=== PATIENT | male | born 1955 | race Caucasian/White ===

== ENCOUNTER → 2018-03-04 | Outpatient (CLI) | payer OTHER, MEDICARE | LOC: M PLARAD 10:23 | DX: M54.5 Low back pain (principal) | CPT/HCPCS: 72148 ==

== ENCOUNTER 2023-03-04 08:34 | Emergency (ER) | payer MEDICARE, OTHER ==
[~2023-03-04] VITALS: Ht 175.3 cm; Wt 103.3 kg
[~2023-03-04 08:34] MED LIST: ASPI325T PO; ASPI81CH PO; DIAZ10TA2 PO; HALO5TAB PO; LISI5TAB PO; METO1TAB87 PO; PRAV1TAB39 PO; ULTR50TA PO; VICO5TAB PO; plavix PO
[2023-03-04 09:18] LABS: BASO % 0.1 % (0.0-1.0); EOS # 0.1 10^3/uL (0.0-0.5); EOS % 0.6 % (0.0-3.0); HEMATOCRIT 45.9 % (42.0-52.0); HEMOGLOBIN 15.7 g/dl (13.5-17.5); LYMPH # 1.5 10^3/uL (1.5-5.0); LYMPH % 9.7 % (24.0-44.0); MEAN CORPUSCULAR HEMOGLOBIN 30.4 pg (27.0-33.0); MEAN CORPUSCULAR HGB CONC 34.2 g/dl (32.0-36.5); MEAN CORPUSCULAR VOLUME 88.8 fl (80.0-96.0); MONO # 1.1 10^3/uL (0.0-0.8); MONO % 6.8 % (2.0-8.0); NEUTROPHILS # 13.1 10^3/uL (1.5-8.5); NEUTROPHILS % 82.3 % (36.0-66.0); PLATELET COUNT, AUTOMATED 234 10^3/uL (150-450); RED BLOOD COUNT 5.17 10^6/uL (4.30-6.10); WHITE BLOOD COUNT 15.9 10^3/uL (4.0-10.0)
[2023-03-04] MEDS ORDERED: CARV6.25 (09:19)
[2023-03-04] MEDS ORDERED: SPIR-10 (09:19)
[2023-03-04] MEDS ORDERED: CHLO125TA (09:19)
[2023-03-04] MEDS: METOPROLOL 5 MG/5 ML VIAL IV SCH ×3 (09:26→09:41)
[2023-03-04 09:33] VITALS: BP 135/84
[2023-03-04 09:46] LABS: CK-MB VALUE MASS < 1.0 NG/ML (<3.6); LIPASE 43 U/L (12-53)
[2023-03-04 09:48] LABS: ALKALINE PHOSPHATASE 61 U/L (46-116); ALT/SGPT 42 U/L (7.0-40); AST/SGOT 20 U/L (<34); BILIRUBIN,DIRECT 0.5 MG/DL (<0.4); BILIRUBIN,TOTAL 1.8 MG/DL (0.3-1.2); BLOOD UREA NITROGEN 23 MG/DL (9-23); CALCIUM LEVEL 9.3 MG/DL (8.3-10.6); CARBON DIOXIDE LEVEL 25 MMOL/L (20-31); CHLORIDE LEVEL 106 MMOL/L (98-107); CPK CREATINE PHOSPHOKINASE 48 U/L (46-171); CREATININE FOR GFR 1.16 MG/DL (0.70-1.30); GLOMERULAR FILTRATION RATE > 60.0 (>49); GLUCOSE, FASTING 144 MG/DL (74-106); MAGNESIUM LEVEL 1.9 MG/DL (1.8-2.4); MB/CK RELATIVE INDEX 2.08 (< OR =4); POTASSIUM SERUM 4.2 MMOL/L (3.5-5.1); SODIUM LEVEL 141 MMOL/L (136-145); TOTAL PROTEIN 7.4 G/DL (5.7-8.2)
[2023-03-04 09:50] LABS: FREE T4 1.17 NG/DL (0.89-1.76); THYROID STIMULATING HORMONE 0.921 uIU/ML (0.55-4.78)
[2023-03-04 10:56] LABS: CK-MB VALUE MASS < 1.0 NG/ML (<3.6)
[2023-03-04 10:58] LABS: CPK CREATINE PHOSPHOKINASE 40 U/L (46-171)
[2023-03-04] MEDS ORDERED: DIGOXIN INJ 0.5 MG/2 ML AMP IV STA (11:01)
[2023-03-04] MEDS ORDERED: AMIODARONE HCL 150 MG in IV 1 EA IV STA ×3 (11:23→14:30)
[2023-03-04 14:02] LABS: CK-MB VALUE MASS < 1.0 NG/ML (<3.6)
[2023-03-04 14:04] LABS: CPK CREATINE PHOSPHOKINASE 48 U/L (46-171); MB/CK RELATIVE INDEX 2.08 (< OR =4)
[2023-03-04] MEDS ORDERED: AMIO200T49 PO ×2 (14:29→15:11)
[2023-03-04 15:31] VITALS: BP 136/73; TEMP 97.8; O2SAT 98
== END 2023-03-04 15:35 | disposition home or self-care (01) ==
LOC: M ED 08:34
DX: I48.91 Unspecified atrial fibrillation (principal); I48.92 Unspecified atrial flutter; Z79.01 Long term (current) use of anticoagulants; Z88.8 Allergy status to other drugs, medicaments and biological substances; Z91.030 Bee allergy status; Z79.811 Long term (current) use of aromatase inhibitors; Z79.899 Other long term (current) drug therapy
CPT/HCPCS: 71045; 80048; 80076; 82550; 82553; 83690; 83735; 84439; 84443; 84484; 85025; 93005; 93041; 94760; 96365; 96366; 96375; 99285; J0283; J1160